=== PATIENT | female | born 1955 | race Caucasian/White ===

== ENCOUNTER 2018-10-23 10:34 | Emergency (ER) | payer BC, SELFPAY ==
[2018-10-23 10:35] VITALS: PULSE 102; RESP 16; TEMP 36.9; O2SAT 100; BMI 23.6
[2018-10-23 10:44] VITALS: BP 149/62; PULSE 100; RESP 20; O2SAT 97
--- NOTE | 2018-10-23 10:44 | NURSING ---
NO OLD EKGS
--- NOTE | 2018-10-23 10:58 | EKG12_ITS ---
Test Reason : NEURO S/SX Blood Pressure : / mmHG Vent. Rate : 082 BPM Atrial Rate : 082 BPM P-R Int : 132 ms QRS Dur : 080 ms QT Int : 406 ms P-R-T Axes : 064 026 038 degrees QTc Int : 474 ms Normal sinus rhythm Nonspecific ST abnormality Abnormal ECG Confirmed by HOLLY ROSS, DANYELL ([id number]), department editor LYSSA LEVY ([id number]) on 10/26/2018 11:11:02 AM Referred By: RUEL Confirmed By:DANYELL BARRERA MD
--- NOTE | 2018-10-23 10:58 | RAD_ITS ---
STUDY: X-RAY CHEST REASON FOR EXAM: Female, 63 years old. Chest pain/pressure TECHNIQUE: Single AP portable view of the chest. COMPARISON: None. FINDINGS: EKG leads overlie the chest The lungs are clear and expanded. There is no demonstrated pleural abnormality. Normal size heart. Normal mediastinum and karely. Normal visualized pulmonary arteries. Normal visualized aortic arch and descending thoracic aorta. Normal visualized thoracic spine. Normal visualized ribs, clavicles, and shoulders. There is no demonstrated abnormality of the visualized soft tissue structures of the upper abdomen. RAD/Chest 1 View IMPRESSION: Normal x-ray examination of the chest. Electronically Signed: Gilberto Kelly MD at 11:48 EDT , Service support ,
--- NOTE | 2018-10-23 10:58 | CT_ITS ---
STUDY: CT BRAIN WITHOUT CONTRAST REASON FOR EXAM: Female, 63 years old. Speech difficulty since last night. Hx of breast cancer.. RADIATION DOSAGE (If Supplied By Facility): CTDIvol = ( 44.99 ) mGy, DLP = ( 745.49 ) mGycm TECHNIQUE: Transaxial CT imaging of the brain was performed without administration of intravenous contrast material. Individualized dose optimization techniques were used for this CT. COMPARISON: None. FINDINGS: There are two 1 cm x 1 cm foci of hemorrhage at the left anterior frontal temporal lobe with surrounding vasogenic edema. Normal size ventricles and extra-axial spaces for the patient's age. Normal basal ganglia and thalami. Normal brainstem. Normal cerebellum. Normal visualized paranasal sinuses. CT/Brain/Head without Contrast IMPRESSION: Left temporal hemorrhage and vasogenic edema. Underlying lesion is not excluded. Further evaluation with contrast-enhanced MRI is recommended. Electronically Signed: Leena Sow MD at 11:55 EDT Tel , Service support ,
--- NOTE | 2018-10-23 11:00 | ED.VISSUMM ---
- ER Visit Summary Date of Service: 10/23/18 Chief Complaint: Stroke symptoms History of Present Illness: The patient is a 63 F presents here with spouse private vehicle stroke symptoms. Initial symptoms started yesterday per patient in the morning or afternoon. States she has speech changes for which she cannot describe. States that resolved. states she was normal last evening however did not know about the symptoms of this morning. Patient awakened at 5 AM felt mild headache left parietal down her left neck. States at around 8:30 AM noted worsening speech changes where she called her . states phone kept hanging up. Patient reports did hear and understand her however could not get her words out. states she could not recognize her tell the dog's name. No previous similar symptoms. History of osteoporosis with weekly pills. History of kidney stones in the past. No stroke history. Physical Examination: General: Alert and oriented ?3, no acute distress HEENT: Normocephalic, atraumatic. Moist mucosa membranes Neck: supple, nontender. Cardiovascular: Regular rate and rhythm, no murmurs Respiratory: Normal breath sounds, symmetric, no distress Abdomen: Soft, nontender, nondistended Extremities: Nontender, no edema, pulses intact ?4 Neuro: NIH equals a 2 for expressive dysphasia and agnosia. Patient could not tell me objects in the picture, patient could not fully read sentences. Test Results: EKG sinus rhythm. WBC 14.1, hemoglobin 14.2, platelets 231. Sodium 141, potassium 0.7 hematocrit 0.8. INR 1.0 PTT 25.1 per troponin negative. Chest x-ray negative. CT head pending final read notes left parietal mass with edema with small hemorrhage, no mass-effect. Emergency Department Course and Treatment: Patient present with stroke symptoms, greater than 24 hours NIH of 2, no indication for stroke team. Stroke protocol initiated. Labs EKG normal. Chest x-ray negative. CT scan of the head reviewed by myself, pending final read currently, notes concerns for left parietal mass with edema, small hemorrhage around this. There is no mass-effect. Patient blood pressure stable in the systolic 130s-140s. She is placed on oxygen per protocol. With no neurosurgery present discussed transferred large facility they request [facility]. She was given Decadron 10 mg IV. Labs are stable, discussed with transfer line and ED physician at [place] Dr. Ríos, updated on findings. Accepts transfer to the ED. Family updated. Treatment Plan: [] Disposition: Transferred [facility] Impression: 1. Intracranial hemorrhage 2. Left parietal mass This note was generated with [employer] dictation software. It may contain incorrect words, spelling, and punctuation that were not noted in review of the chart prior to signing ED Disposition - Plan for ED Patient: Disposition: [facility] Diagnosis: Intracranial hemorrhage, Left parietal mass Referrals: Eren Mccormack III, MD [Primary Care Provider] -
--- NOTE | 2018-10-23 11:03 | ED.DCSUM_ITS ---
- ER Visit Summary Date of Service: 10/23/18 Chief Complaint: Stroke symptoms History of Present Illness: The patient is a 63 F presents here with spouse private vehicle stroke symptoms. Initial symptoms started yesterday per patient in the morning or afternoon. States she has speech changes for which she cannot describe. States that resolved. states she was normal last evening however did not know about the symptoms of this morning. Patient awakened at 5 AM felt mild headache left parietal down her left neck. States at around 8:30 AM noted worsening speech changes where she called her . states phone kept hanging up. Patient reports did hear and understand her however could not get her words out. states she could not recognize her tell the dog's name. No previous similar symptoms. History of osteoporosis with weekly pills. History of kidney stones in the past. No stroke history. Physical Examination: General: Alert and oriented ?3, no acute distress HEENT: Normocephalic, atraumatic. Moist mucosa membranes Neck: supple, nontender. Cardiovascular: Regular rate and rhythm, no murmurs Respiratory: Normal breath sounds, symmetric, no distress Abdomen: Soft, nontender, nondistended Extremities: Nontender, no edema, pulses intact ?4 Neuro: NIH equals a 2 for expressive dysphasia and agnosia. Patient could not tell me objects in the picture, patient could not fully read sentences. Test Results: EKG sinus rhythm. WBC 14.1, hemoglobin 14.2, platelets 231. Sodium 141, potassium 0.7 hematocrit 0.8. INR 1.0 PTT 25.1 per troponin negative. Chest x-ray negative. CT head pending final read notes left parietal mass with edema with small hemorrhage, no mass-effect. Emergency Department Course and Treatment: Patient present with stroke symptoms, greater than 24 hours NIH of 2, no indication for stroke team. Stroke protocol initiated. Labs EKG normal. Chest x-ray negative. CT scan of the head reviewed by myself, pending final read currently, notes concerns for left parietal mass with edema, small hemorrhage around this. There is no mass- effect. Patient blood pressure stable in the systolic 130s-140s. She is placed on oxygen per protocol. With no neurosurgery present discussed transferred large facility they request [facility]. She was given Decadron 10 mg IV. Labs are stable, discussed with transfer line and ED physician at [place] Dr. Ríos, updated on findings. Accepts transfer to the ED. Family updated. Treatment Plan: [] Disposition: Transferred [facility] Impression: 1. Intracranial hemorrhage 2. Left parietal mass This note was generated with [employer] dictation software. It may contain incorrect words, spelling, and punctuation that were not noted in review of the chart prior to signing ED Disposition - Plan for ED Patient: Disposition: [facility] Diagnosis: Intracranial hemorrhage, Left parietal mass Referrals: Eren Mccormack III, MD [Primary Care Provider] -
[2018-10-23 11:07] VITALS: BP 143/68; PULSE 98; RESP 17; O2SAT 100
[2018-10-23 11:10] LABS: Bedside Glucose 106 mg/dL (70-110)
[2018-10-23 11:12] LABS: Prothrombin Time (Protime)PT. 13.1 SECONDS (11.7-14.9)
[2018-10-23 11:13] LABS: Absolute Lymphocyte Count 0.99 X10^3/ul (0.83-4.51); Absolute Neutrophil Count 12.5 X10^3/uL (2.0-7.7); Basophil# 0.01 X10^3/uL; Basophil% 0.1 % (0-1); Eosinophil# 0.01 X10^3/uL; Eosinophils% 0.1 % (0-5); Hemoglobin 14.2 g/dl (12.0-15.0); Lymphocyte # 0.99 X10^3/ul (4.0); Mean Corpuscular Hgb 30.1 pg (27.0-32.0); Mean Corpuscular Volume 91.1 fL (81-99); Mean Platelet Vol. 9.4 fl (6.2-12.0); Monocyte# 0.55 X10^3/uL; Monocyte% 3.9 % (0-10); Neutrophil # 12.54 X10^3/uL (2.7-7.7); Neutrophil % 88.7 % (47-70); POSITIVE COUNT NO; POSITIVE DIFFERENTIAL NO; POSITIVE MORPHOLOGY NO; Partial Thromboplast Time 25.1 Seconds (24.1-36.2); Platelet Count 231 K/mm3 (150-450); RBC Distribution Width CV 13.5 % (11.6-14.6); RBC Distribution Width SD 44.1 fl (35.1-43.9); Red Blood Count 4.72 M/mm3 (4.2-5.4); White Blood Count 14.1 K/mm3 (4.4-11.0)
[2018-10-23 11:26] LABS: Anion Gap 7 (5-15); BUN 19 mg/dL (7-18); BUN/Creat Ratio 23.9 RATIO (10-20); Calcium,Total 8.7 mg/dL (8.5-10.1); Chloride 110 mmol/L (98-107); EST Glomerular Filtration Rate 78 mL/min (>60); Est Glom Filt Rate - Afr Amer 94 mL/min (>60); Estimated Creatinine Clearance 52.37 ml/min; Glucose 109 mg/dL (74-106); Potassium 3.7 mmol/L (3.5-5.1); Sodium Level 141 mmol/L (136-145)
[2018-10-23 11:30] VITALS: BP 148/67; PULSE 99; RESP 18; O2SAT 100
[2018-10-23] MEDS: Ondansetron 4 MG/2 ML Vial IV (11:53)
[2018-10-23] MEDS: fentaNYL 100 MCG/2 ML Ampul 25 MCG IV (11:53)
--- NOTE | 2018-10-23 11:56 | ED.RN ---
VERBAL ORDER FROM DR. LIPSCOMB TO KEEP PT NPO AND FOREGO SWALLOW EVAL. AT THIS TIME. PT TO BE [id number] FOR FURTHER CARE.
[2018-10-23 12:00] VITALS: BP 148/75; BP 150/71; PULSE 88; PULSE 93; RESP 22; RESP 25; O2SAT 100
--- NOTE | 2018-10-23 12:02 | NURSING ---
ACCEPTED AT [facility]
--- NOTE | 2018-10-23 12:04 | CASEMGMT ---
According to the [place] website, the following in-network tertiary facilities: [facility], [place], [facility], [facility], [facility], [facility], [place], [facility], and . [facility] BLAKELY CM
--- NOTE | 2018-10-23 12:06 | NURSING ---
CALLED [facility] FOR TRANSPORT. ETA IS ABOUT 20 MIN
--- NOTE | 2018-10-23 12:31 | ED.RN ---
PT TOOK HOME [facility]TS [facility].
== END 2018-10-23 12:31 | disposition short-term general hospital (02) ==
PROVIDERS: Emergency Provider Emergency Medicine; Family Provider Family Medicine; PCP Family Medicine
DX: I62.9 Nontraumatic intracranial hemorrhage, unspecified (principal); R47.02 Dysphasia; R22.0 Localized swelling, mass and lump, head; M81.0 Age-related osteoporosis without current pathological fracture
CPT/HCPCS: 70450; 71045; 80048; 82962; 84484; 85025; 85610; 85730; 93005; 96374; 96375; 99285; A4216; J2405

== ENCOUNTER → 2018-11-02 13:37 | Outpatient (CLI) | payer BC, SELFPAY ==
[2018-10-23 10:35] VITALS: BMI 23.6
[2018-11-02 13:55] LABS: International Normalized Ratio 1.4; Prothrombin Time (Protime)PT. 16.6 SECONDS (11.7-14.9)
== END ==
PROVIDERS: Family Provider Family Medicine; PCP Family Medicine; Referring Provider Family Medicine; Visit Provider Family Medicine
DX: G08 Intracranial and intraspinal phlebitis and thrombophlebitis (principal)
CPT/HCPCS: 85610